=== PATIENT | male | born 1945 | race Caucasian/White ===

== ENCOUNTER 2017-09-06 16:30 | Inpatient (IN) | payer MEDICARE ==
[~2017-09-06] VITALS: Ht 175.3 cm; Wt 74.6 kg
[2017-09-06] MEDS ORDERED: NACL 0.9% 1,000 ML IV ONE ×2 (16:33→17:40)
[2017-09-06 16:35] VITALS: BP 111/51
[2017-09-06] MEDS ORDERED: methylPREDNISolone SS 125 MG in WATER STERILE 2 ML IM ONE (16:35)
[2017-09-06 16:40] VITALS: BP 111/51
--- NOTE | 2017-09-06 16:40 | NUR ---
RECEIVED PT ON CPAP FROM EMS PLACED ON CHANG V60 ST 14\6 RR14 FIO2 40 ALARMS ARE ON AND FUNCTIONAL BS INSP WHEEZING PT IN HF IRRITABLE SIZE LG F\F MASK GEL UNDER MASK I\L HHN GIVEN WITH 3 MG DUONEB
--- NOTE | 2017-09-06 16:40 | NUR ---
72m biba with c/o sob x 30 days, progressively getting worse. Per flight control specialist, on scene pulse ox=60% on ra; Pt able to able in short phrases; RR are tachypenic and labored; Per flight control specialist, pt sts cough and fever as well. Pt is aox4, gcs=15. Pt placed in RM10. RT, lab, er md burch by bedside. Pt placed on bipap per RT. NAD at this time. Will continue to monitor.
[2017-09-06] MEDS ORDERED: ALBUTEROL SULFATE/IPRATROPIU 3 ML SOL IH ONE (16:45)
[2017-09-06] MEDS ORDERED: METO25TA PO (16:48)
[2017-09-06] MEDS ORDERED: THEO400T4 PO (16:48)
[2017-09-06] MEDS ORDERED: ORE25 PO (16:48)
[2017-09-06] MEDS ORDERED: ATOR40TA PO (16:48)
[2017-09-06] MEDS ORDERED: LOSA50TA39 PO (16:48)
[2017-09-06] MEDS ORDERED: PRED20TA5 PO (16:48)
[2017-09-06 16:54] LABS: HEMATOCRIT 49.4 % (36-52); HEMOGLOBIN 15.7 g/dL (12.0-18.0); MEAN CORPUSCULAR HEMOGLOBIN 32 pg (27-31); MEAN CORPUSCULAR HGB CONC 32 g/dL (33-37); MEAN CORPUSCULAR VOLUME 99 fL (80-94); PLATELET COUNT (AUTO) 271 K/uL (140-450); RED BLOOD CELL COUNT(AUTO) 4.97 MIL/uL (4.20-6.10); RED CELL DISTRIBUTION WIDTH 13.4 % (11.6-13.7); WHITE BLOOD COUNT (AUTO) 15.6 K/uL (4.8-10.8)
[2017-09-06 17:12] LABS: PROTHROMBIN TIME 10.8 secs (10.8-13.4)
[2017-09-06 17:16] LABS: LYMPHOCYTES % (MANUAL) 8 % (20-46); MONOCYTES % (MANUAL) 8 % (5-12)
[2017-09-06 17:19] LABS: ALBUMIN 2.8 g/dL (3.4-5.0); ANION GAP 8.7 (8-16); ASPARTATE AMINOTRANSFERASE 35 U/L (15-37); CARBON DIOXIDE 39.2 mmol/L (21-32); CHLORIDE 96 mmol/L (98-107); CREATININE 1.5 mg/dL (0.7-1.3); GLUCOSE 120 mg/dL (74-106); LIPASE 94 U/L (73-393); SODIUM SERUM 141 mmol/L (136-145); TOTAL BILIRUBIN 0.4 mg/dL (0.0-1.0); UREA NITROGEN, BLOOD 25 mg/dL (7-18)
[2017-09-06 17:21] LABS: POTASSIUM 2.9 mmol/L (3.5-5.1)
[2017-09-06] MEDS ORDERED: KCL 20 MEQ/WATER INJ PREMIX 100 ML IV ONE (17:25)
[2017-09-06] MEDS ORDERED: ASPIRIN 325 MG TAB PO ONE (17:40)
[2017-09-06] MEDS ORDERED: LEVOFLOXACIN 750 MG/D5W PREMIX 150 ML IV ONE (17:40)
--- NOTE | 2017-09-06 18:00 | NUR ---
iv fluid infusing well; pt tolerating bipap; pt with no complaints; no resp distress at this time; will continue to monitor.
[2017-09-06] MEDS ORDERED: ACETAMINOPHEN 325 MG TAB PO PRN (18:20)
[2017-09-06] MEDS ORDERED: MORPHINE SULFATE 2 MG/ML SYR IVP PRN (18:20)
[2017-09-06] MEDS ORDERED: HYDROcodone/APAP 7.5/325 MG 1 TAB PO PRN (18:20)
[2017-09-06] MEDS ORDERED: ZOLPIDEM 5 MG TAB PO PRN (18:20)
[2017-09-06] MEDS ORDERED: DOCUSATE SODIUM 100 MG GELCAP PO PRN (18:20)
[2017-09-06] MEDS ORDERED: LORazepam 0.5 MG TAB PO PRN (18:20)
[2017-09-06] MEDS ORDERED: ONDANSETRON 4 MG/2 ML VIAL IM/IVP PRN (18:20)
[2017-09-06] MEDS ORDERED: ACETAMINOPHEN 325 MG TAB PO ONE (18:25)
[2017-09-06] MEDS ORDERED: ALBUTEROL SULFATE/IPRATROPIU 3 ML SOL IH PRN (18:25)
--- NOTE | 2017-09-06 19:00 | NUR ---
Patient will be admitted to care of [facility]. Admited to Tele. Will go to room 120-B. Belongings list completed. Bedside report to Nereyda.
--- NOTE | 2017-09-06 19:00 | NUR ---
endorsed to tessa rn ua has not been collected
--- NOTE | 2017-09-06 19:15 | NUR ---
RECEIVED REPORT AT BEDSIDE FROM DRY PAN FEEDERTRACY. PT A/OX4 ON BIPAP. PT HAS A 20G IV TO LEFT AC AND 20G IV TO RIGHT AC. SKIN INTACT. SAFETY PRECAUTIONS IN PLACE. UPDATED BOARD. VITAL SIGNS WITHIN NORMAL LIMITS. PT IN STABLE CONDITION, NO SIGNS OF DISTRESS NOTED. BED IN LOW POSITION, CALL LIGHT WITHIN REACH. WILL CONTINUE TO MONITOR.
[2017-09-06 19:32] LABS: CHOL/HDL RATIO 2.9 (1-4.5); FREE T4 (FREE THYROXINE) 0.97 ng/dL (0.76-1.46); MAGNESIUM 1.9 mg/dL (1.8-2.4); PHOSPHORUS 3.7 mg/dL (2.5-4.9); THYROID STIMULATING HORMONE 0.57 uIU/mL (0.34-3.74)
[2017-09-06] MEDS ORDERED: POTASSIUM CHLORIDE 10 MEQ TABER PO SCH (20:00)
--- NOTE | 2017-09-06 20:10 | NUR ---
LEATHA FROM LAB CALLED TO GIVE RESULTS OF POSITIVE INFLUENZA A, NEGATIVE INFLUENZA B . SPOKE TO DR. CHANG, DR CHANG WILL PLACE PT ON CONTACT PRECAUTIONS.
--- NOTE | 2017-09-06 20:40 | NUR ---
TOOK PT TO NEW ROOM, PLACED DROPLET PRECAUTIONS SIGN OUTSIDE DOOR, ORIENTED PT TO NEW ROOM. RT HELPED MOVE RESPIRATORY EQUIPMENT TO NEW ROOM.
[2017-09-06 21:00] VITALS: BP 117/71
[2017-09-06] MEDS: NACL 0.9% 1,000 ML IV SCH (21:00)
[2017-09-06] MEDS: LEVOFLOXACIN 750 MG/D5W PREMIX 150 ML IV SCH (21:00)
[2017-09-06] MEDS: methylPREDNISolone SS 125 MG/2 ML VIAL IVP SCH (21:10)
[2017-09-06] MEDS: CLINDAMYCIN 600 MG in DEXTROSE 5% 50 ML IV SCH (21:10)
[2017-09-06] MEDS ORDERED: CLINDAMYCIN 600 MG/4 ML VIAL ONE (21:11)
--- NOTE | 2017-09-06 21:11 | NUR ---
PATIENT ON BIPAP 14/6 RR 14 FIO2 40% AT THIS TIME. PT DOES NOT NOT WANT TO TAKE OFF BIPAP UNIT SINCE HE IS ON CPAP +9 AT NIGHT. UNABLE TO PERFORM INCENTIVE SPIROMETER TONIGHT. MAINTAIN O2SAT GREATER THAN 92%. CONTINUOUS PULSE OX AT BEDSIDE SAO2 94%
[2017-09-07] VITALS: BP 118/65
[2017-09-07 04:00] VITALS: BP 130/57
[2017-09-07] MEDS: CLINDAMYCIN 600 MG in DEXTROSE 5% 50 ML IV SCH ×3 (05:50→20:28)
[2017-09-07] MEDS: methylPREDNISolone SS 125 MG/2 ML VIAL IVP SCH ×2 (05:50→14:24)
[2017-09-07] MEDS ORDERED: CLINDAMYCIN 600 MG/4 ML VIAL ONE (05:57)
[2017-09-07 06:12] LABS: T4 (THYROXINE) 4.4 ug/dL (4.5-12.0)
--- NOTE | 2017-09-07 07:00 | NUR ---
RECIVED PT ON BIPAP WITH SETTINGS CHARTED BREATH SOUNDS PRESENT BILAT DIMINISHED PT AWAKE ALERT AMBU BAG AT BEDSIDE BIPAP PLUGGED INTO RED OUTLET
[2017-09-07] MEDS: ALBUTEROL SULFATE/IPRATROPIU 3 ML SOL IH SCH ×3 (07:14→19:04)
--- NOTE | 2017-09-07 07:36 | NUR ---
ENDORSED PT TO DAY SHIFT NURSE FOR CONTINUITY OF CARE, PT IN STABLE CONDITION.
--- NOTE | 2017-09-07 07:37 | NUR ---
RECEIVED REPORT FROM TOP TAPER MACHINE RN. PATIENT IS AAOX4, RESPIRATORY EFFORT UNLABORED AT THIS TIME. NO SIGNS AND SYMPTOMS OF ACUTE DISTRESS NOTED AT THIS TIME. PATIENT ON DROPLET PRECAUTIONS DUE TO POSITIVE FOR TYPE A INFLUENZA. PATIENT ON BREATHING TREATMENTS. HAS IV TO BILATERAL AC, 20G ON BOTH. SITES ARE CLEAN, DRY, PATENT AND INTACT. DISCUSSED PLAN OF CARE WITH PATIENT AND HE VERBALIZED UNDERSTANDING. BED IN LOWEST POSITION, SIDE RAILS UP X2, CALL LIGHT PLACED WITHIN REACH. WILL CONTINUE TO MONITOR.
[2017-09-07 07:50] LABS: BASOPHILS % (AUTO) 0.4 % (0.0-2.0); EOSINOPHILS % (AUTO) 0.2 % (0.0-4.0); HEMATOCRIT 41.9 % (36-52); HEMOGLOBIN 13.9 g/dL (12.0-18.0); LYMPHOCYTES # (AUTO) 0.6 K/uL (2.0-11.5); LYMPHOCYTES % (AUTO) 4.6 % (20.5-51.1); MEAN CORPUSCULAR HEMOGLOBIN 33 pg (27-31); MEAN CORPUSCULAR HGB CONC 33 g/dL (33-37); MEAN CORPUSCULAR VOLUME 99 fL (80-94); MONOCYTES # (AUTO) 0.6 K/uL (0.8-1.0); NEUTROPHILS # (AUTO) 11.2 K/uL (1.8-7.7); NEUTROPHILS % (AUTO) 89.8 % (42.2-75.2); PLATELET COUNT (AUTO) 241 K/uL (140-450); RED BLOOD CELL COUNT(AUTO) 4.25 MIL/uL (4.20-6.10); RED CELL DISTRIBUTION WIDTH 13.9 % (11.6-13.7); WHITE BLOOD COUNT (AUTO) 12.4 K/uL (4.8-10.8)
[2017-09-07 08:00] VITALS: BP 121/62
[2017-09-07 08:09] LABS: MAGNESIUM 2.1 mg/dL (1.8-2.4); PHOSPHORUS 4.8 mg/dL (2.5-4.9)
[2017-09-07 08:11] LABS: ANION GAP 9.9 (8-16); CARBON DIOXIDE 36.7 mmol/L (21-32); CHLORIDE 102 mmol/L (98-107); CREATININE 1.3 mg/dL (0.7-1.3); GLUCOSE 152 mg/dL (74-106); POTASSIUM 3.6 mmol/L (3.5-5.1); SODIUM SERUM 145 mmol/L (136-145); UREA NITROGEN, BLOOD 31 mg/dL (7-18)
--- NOTE | 2017-09-07 08:31 | NUR ---
REMOVED PT FROM BIPAP AND PLACED ON 5LPM NC SO PT COULD EAT BREAKFEAST PT SPO2 .88 T0 .92 WILL CONTINUE TO MONITOR PT WHILE EATING BREAKFEAST
--- NOTE | 2017-09-07 08:58 | NUR ---
PATIENT HAS BEEN SCREENED AND CATEGORIZED HIGH NUTRITION RISK. PATIENT WILL BE SEEN WITHIN 1-2 DAYS OF ADMISSION. 09/06/17-09/07/[address]
[2017-09-07] MEDS ORDERED: predniSONE 20 MG TAB PO SCH (09:00)
--- NOTE | 2017-09-07 09:44 | NUR ---
PT PLACED BACK ON BIPAP WITH SETTINGS CHARTED WILL CONTINUE TO MONITOR PT
[2017-09-07] MEDS: LACTOBACILLUS RHAMNOSUS GG 1 EACH CAP PO SCH (09:51)
[2017-09-07] MEDS: THEOPHYLLINE 200 MG TABER PO SCH (09:51)
[2017-09-07] MEDS: HYDROCHLOROTHIAZIDE 25 MG TAB PO SCH (09:52)
[2017-09-07] MEDS: LOSARTAN 50 MG TAB PO SCH (09:52)
[2017-09-07] MEDS: METOPROLOL 25 MG TAB PO SCH (09:52)
[2017-09-07] MEDS: ATORVASTATIN 20 MG TAB PO SCH (09:53)
[2017-09-07 12:00] VITALS: BP 91/63
--- NOTE | 2017-09-07 12:05 | NUR ---
PATIENT ON NASAL CANNULA 5L SO HE CAN EAT HIS LUNCH. 02 SAT 87-86%.
--- NOTE | 2017-09-07 13:30 | NUR ---
PATIENT BACK ON BIPAP. TOLERATING WELL.
--- NOTE | 2017-09-07 13:37 | NUR ---
REMOVED PT FROM BIPAP PLACED ON 5LPM NC FOR LUNCH PT AWAKE ALERT WILL CONTINUE TO MONITOR PT
[2017-09-07] MEDS: NACL 0.9% 1,000 ML IV SCH (14:20)
--- NOTE | 2017-09-07 14:29 | NUR ---
CM NOTE INITIAL REVIEW FAXED TO [facility] / FAX# [phone], ATTN: STEPHANIE #[phone]
--- NOTE | 2017-09-07 14:55 | NUR ---
PT ON B PAP DECREASED IPAP TO 15 EPAP TO [address] TURNER Addendum: 09/07/17 at 1547 by Tyler Hansen RT PT ON BIPAP DECREASED IPAP TO 10 EPAP TO [address] TURNER INPUT ERROR ABOVE
[2017-09-07] MEDS ORDERED: INSULIN LISPRO SLIDING SCALE 100 UNITS/ML VIAL SUBQ PRN (15:25)
[2017-09-07] MEDS ORDERED: DEXTROSE 50% 50 ML SYR IVP PRN (15:25)
--- NOTE | 2017-09-07 15:40 | NUR ---
09/06/2017 RD INITIAL ASSESSMENT COMPLETED PLEASE REFER TO NUTRITION ASSESSMENT UNDER CARE ACTIVITY FOR ESTIMATED NUTRITIONAL NEEDS. 1.PT TO CONTINUE TO RECEIVE CARDIAC DIET. 2.PT TO COMSUME >75% ESTIMATED KCAL AND PRO NEEDS/DAY WITH GOOD TOLERANCE WITHIN 3-5 DAYS. 3.RD TO FOLLOW-UP IN 3-5 DAYS PATIENT IS MODERATE RISK. AMAURI FLORES, RD
[2017-09-07 16:00] VITALS: BP 107/60
--- NOTE | 2017-09-07 16:41 | NUR ---
PT ON BIPAP ALL DAY OFF BIPAP ONLY TO EAT NO IS DONE AT THIS TIME
[2017-09-07] MEDS: BLOOD GLUCOSE MONITORING 1 DEV DEV FS SCH ×2 (17:19→21:16)
--- NOTE | 2017-09-07 17:25 | NUR ---
CONTINUED TO MONITOR PT ON VENT WITH SETTINGS CHARTED BREATH SOUNDS BILAT COARSE AMBU BAG AT BEDSIDE
--- NOTE | 2017-09-07 18:20 | NUR ---
PT OFF BIPAP AND ON 5LPM NC SPO2 90 PT AWAKE ALERT EATING DINNER AT BEDSIDE
--- NOTE | 2017-09-07 18:20 | NUR ---
PATIENT OFF OF BIPAP SO HE CAN EAT HIS DINNER. NASAL CANNULA ON 5LPM 02 90%. TOLERATING WELL. WILL CONTINUE TO MONITOR.
[2017-09-07] MEDS: BUDESONIDE 0.25 MG/2 ML NEBU INH SCH ×3 (19:03→19:05)
--- NOTE | 2017-09-07 19:09 | NUR ---
RT IN THE ROOM PLACING PATIENT BACK ON BIPAP.
--- NOTE | 2017-09-07 19:10 | NUR ---
ENDORSED PATIENT TO RAD TECHNOLOGIST RN FOR CONTINUITY OF CARE. PATIENT IN STABLE CONDITION.
--- NOTE | 2017-09-07 19:11 | NUR ---
RECEIVED HANDOFF REPORT FROM AM RN. PATIENT A&OX4. PATIENT HAS BI PAP IN PLACE. IV SITE PATENT AND INTACT. PATIENT DENIES PAIN. NO SIGNS OR SYMPTOMS OF ACUTE DISTRESS NOTED. CALL LIGHT WITHIN REACH. WILL CONTINUE TO MONITOR.
[2017-09-07 20:00] VITALS: BP_SYST 109; BP_SYST 131; BP_DIAS 57
[2017-09-07] MEDS: methylPREDNISolone SS 40 MG/ML VIAL IVP SCH (20:29)
[2017-09-07] MEDS: OSELTAMIVIR PHOSPHATE 75 MG CAP PO SCH (20:29)
[2017-09-08] VITALS (9 sets, daily range): BP systolic 0–132; BP diastolic 0–86
--- NOTE | 2017-09-08 00:28 | NUR ---
PATIENT RESTING IN BED. PATIENT DENIES PAIN. NO SIGNS OR SYMPTOMS OF ACUTE DISTRESS. CALL LIGHT WITHIN REACH. WILL CONTINUE TO MONITOR.
[2017-09-08] MEDS: methylPREDNISolone SS 40 MG/ML VIAL IVP SCH ×3 (05:36→20:19)
[2017-09-08] MEDS: CLINDAMYCIN 600 MG in DEXTROSE 5% 50 ML IV SCH ×3 (05:36→20:35)
[2017-09-08] MEDS: BLOOD GLUCOSE MONITORING 1 DEV DEV FS SCH ×4 (06:37→20:19)
[2017-09-08] MEDS: BUDESONIDE 0.25 MG/2 ML NEBU INH SCH ×2 (07:00→19:19)
[2017-09-08] MEDS: ALBUTEROL SULFATE/IPRATROPIU 3 ML SOL IH SCH ×3 (07:00→19:19)
--- NOTE | 2017-09-08 07:27 | NUR ---
ENDORSED PLAN OF CARE TO AM RN. PATIENT IN STABLE CONDITION.
--- NOTE | 2017-09-08 07:28 | NUR ---
RECEIVED REPORT FROM TANK INSPECTOR NURSE, PT IS RESTING IN BED, PT IS A/OX4, USES BEDSIDE COMMODE, IV IS ON THE LEFT WRIST, PATENT, INTACT, FLUSHING WELL, PT IS ON BI PAP MACHINE AT THIS TIME, RT IS AT BEDSIDE NO S/S OF RESPIRATORY DISTRESS OR DISCOMFORT NOTED, DISCUSSED PLAN OF CARE WITH PT, PT VERBALIZED UNDERSTANDING, SAFETY/FALL PRECAUTIONS ARE IN PLACE, CALL LIGHT IS WITHIN REACH, WILL CONTINUE TO MONITOR.
[2017-09-08 07:34] LABS: BASOPHILS % (AUTO) 0.1 % (0.0-2.0); EOSINOPHILS # (AUTO) 0.1 K/uL (0-0.4); EOSINOPHILS % (AUTO) 0.3 % (0.0-4.0); HEMOGLOBIN 13.4 g/dL (12.0-18.0); LYMPHOCYTES # (AUTO) 0.7 K/uL (2.0-11.5); LYMPHOCYTES % (AUTO) 3.8 % (20.5-51.1); MEAN CORPUSCULAR HEMOGLOBIN 33 pg (27-31); MEAN CORPUSCULAR HGB CONC 33 g/dL (33-37); MEAN CORPUSCULAR VOLUME 99 fL (80-94); MONOCYTES # (AUTO) 0.7 K/uL (0.8-1.0); MONOCYTES % (AUTO) 3.7 % (1.7-9.3); NEUTROPHILS # (AUTO) 16.6 K/uL (1.8-7.7); NEUTROPHILS % (AUTO) 92.1 % (42.2-75.2); PLATELET COUNT (AUTO) 228 K/uL (140-450); RED BLOOD CELL COUNT(AUTO) 4.13 MIL/uL (4.20-6.10); RED CELL DISTRIBUTION WIDTH 13.7 % (11.6-13.7)
[2017-09-08 08:10] LABS: ANION GAP 2.9 (8-16); CARBON DIOXIDE 37.3 mmol/L (21-32); CHLORIDE 99 mmol/L (98-107); CREATININE 1.5 mg/dL (0.7-1.3); GLUCOSE 201 mg/dL (74-106); POTASSIUM 3.2 mmol/L (3.5-5.1); SODIUM SERUM 136 mmol/L (136-145); UREA NITROGEN, BLOOD 41 mg/dL (7-18)
--- NOTE | 2017-09-08 08:21 | NUR ---
PT TAKEN OFF OF BIPAP TO EAT AND PLACED ON 5L NC. PT IS NOT SOB AND NOT IN RESPIRATORY DISTRESS AT THIS TIME. NURSE ION ROBLERO.
[2017-09-08 08:42] LABS: WHITE BLOOD COUNT (AUTO) 18.1 K/uL (4.8-10.8)
[2017-09-08] MEDS ORDERED: POTASSIUM CHLORIDE 10 MEQ TABER PO SCH (09:07)
[2017-09-08] MEDS: OSELTAMIVIR PHOSPHATE 75 MG CAP PO SCH ×2 (09:18→20:19)
[2017-09-08] MEDS: LACTOBACILLUS RHAMNOSUS GG 1 EACH CAP PO SCH (09:19)
[2017-09-08] MEDS: ATORVASTATIN 20 MG TAB PO SCH (09:19)
[2017-09-08] MEDS: HYDROCHLOROTHIAZIDE 25 MG TAB PO SCH (09:19)
[2017-09-08] MEDS: LOSARTAN 50 MG TAB PO SCH (09:19)
[2017-09-08] MEDS: METOPROLOL 25 MG TAB PO SCH (09:20)
[2017-09-08] MEDS: THEOPHYLLINE 200 MG TABER PO SCH (09:20)
[2017-09-08] MEDS: AMANTADINE 100 MG CAP PO SCH (09:20)
--- NOTE | 2017-09-08 09:44 | NUR ---
CHECKED ON PT PLACED PT ON 5LPM OXYMIXER PT AWAKE ALERT STATES HE WANTS TO STAY OFF BIPAP AWHILE LONGER PT SPO2 .89 TO.92 MILD LABORED BREATHING WILL CONTINUE TO MONITOR PT
[2017-09-08] MEDS: NACL 0.9% 1,000 ML IV SCH (11:07)
--- NOTE | 2017-09-08 12:16 | NUR ---
PT BLOOD SUGAR 196, PT REFUSED INSULIN AT THIS TIME.
--- NOTE | 2017-09-08 14:10 | NUR ---
PT REQUESTED TO GO BACK ON BIPAP PTPLACED ON BIPAP WITH SETTINGS CHARTED PT QUIET AT THIS TIME WILL CONTINUE TO MONITOR
--- NOTE | 2017-09-08 14:28 | NUR ---
1240 MET WITH PT AND AT BEDSIDE. PT STATED THAT HE HAS AN O2 CONCENTRATOR, PORTABLE TANKS AND A C-PAP AND NEBULIZER MACHINES. PT SAID DUE TO A MERGER OF COMPANIES THE O2 COMPANY HE HAD WAS TAKEN OVER BY ANOTHER COMPANY AND THAT HE IS NOT HAPPY WITH THE SERVICE. DISCUSSED WITH HIM THAT THE COMPANY TO BE USED IS USUALLY DETERMINED BY THE INSURANCE COMPANY. PT DID NOT KNOW THE NAME OF THE O2 COMPANY AT THIS TIME.
--- NOTE | 2017-09-08 15:00 | NUR ---
PT RESTING IN BED, WATCHING TV, CALL LIGHT WITHIN REACH.
--- NOTE | 2017-09-08 15:15 | NUR ---
PT REMOVED PER HIS REQUEST AND PLACED ON 5LPM OXYMISER MILD RESP DISTRESS SPO2 .96 PT AWAKE ALERT AT BEDSIDE RN AWARE
--- NOTE | 2017-09-08 15:56 | NUR ---
FAXED CONCURRENT REVIEW TO [facility] [phone] PHONE STEPHANIE [phone]
[2017-09-08] MEDS ORDERED: ALBU-118 IH (16:29)
--- NOTE | 2017-09-08 17:37 | NUR ---
PT REFUSED INSULIN AT THIS TIME.
--- NOTE | 2017-09-08 19:10 | NUR ---
ENDORSED PT TO ACID CONDITIONER NURSE FOR CONTINUITY OF CARE, PT STABLE AT THIS TIME.
--- NOTE | 2017-09-08 19:19 | NUR ---
AWAKE AND ALERT RESPONSIVE TO ARTS ADMINISTRATOR VERBAL COMMANDS HFW POSITION SKIN TONE FAIR SATURATION 89% ON SUPPLEMENTAL OXYGEN AT 5 LPM VIA OXYMIZER HR 91 RR 28 PATIENT REFUSES BIPAP TO MASK WITHOUT PROTECTA GEL (NOT AVAILABLE) HHN THERAPY VIA MASK WITH COSTA GUERRERO PATIENT REFUSES AFTER 6 MIN DUE TO INCREASED COUGHING ARTS ADMINISTRATOR TO PLACE PATIENT BACK ON BIPAP TO MASK AT LATER TIME Addendum: 09/08/17 at 2118 by Jc Clarke RT BREATH SOUNDS INSP/EXP RALES BILATERAL WITH GOOD CHEST RISE Addendum: 09/08/17 at 2121 by Jc Clarke RT PRINCE CASTRO CONTINUOS PULSE OXIMETRY AT BEDSIDE ON AND FUNCTIONING WELL LOW SATURATION ALARM SET AT 88%
--- NOTE | 2017-09-08 19:20 | NUR ---
RECEIVED REPORT FROM DAY SHIFT RN AT BEDSIDE, PATIENT RESTING IN BED, NO S/S OF DISTRESS, RESPIRATION EVEN AND UNLABORED. PATIENT DENIES PAIN AT THIS TIME, PLAN OF CARE DISCUSSED, PATIENT WANTS ME TO GIVE HIM 2100 MEDICATION AT THIS TIME, INFORMED THE PATIENT IT'S TOO EARLY TO HAVE MEDICATION AT THIS TIME, PATIENT IS A LITTLE BIT UPSET. PATIENT ASKED FOR BIPAP, RT IS INFORMED AND RT SAID HE WOULD COME TO HELP THE PATIENT. CALL LIGHT WITHIN REACH, SAFETY MEASURE ENSURED, WILL CONTINUE TO MONITOR.
[2017-09-08] MEDS: LEVOFLOXACIN 750 MG/D5W PREMIX 150 ML IV SCH (20:18)
--- NOTE | 2017-09-08 20:35 | NUR ---
PATIENT REFUSED INSULIN AT FIRST, STATED," I DIDN'T EAT ANY CANDY OR SUGAR, IT'S RIDICULOUS TO HAVE INSULIN." EDUCATED PATIENT THAT THE POTATO HE ATE FOR DINNER CONTAINING SUGAR WELL, THEREFORE HIS BLOOD SUGAR LEVEL 223. PATIENT STILL REFUSED INSULIN. MADE DR. CHANG AWARE, AFTER DO. CHANG TALKED TO THE PATIENT, PATIENT AGREE TO RECEIVE INSULIN. INSULIN GIVEN ORDERED.
--- NOTE | 2017-09-08 22:20 | NUR ---
PATIENT IS SLEEPING, NO S/S OF DISTRESS NOTED, RESPIRATION EVEN AND UNLABORED, ON BIPAP. CALL LIGHT WITHIN REACH, SAFETY MEASURE ENSURED, WILL CONTINUE TO MONITOR.
--- NOTE | 2017-09-08 23:35 | NUR ---
ASLEEP RESTING COMFORTABLY TOLERATING BIPAP TO MASK WELL WITHOUT ADVERSE REACTIONS NOTED
[2017-09-09] VITALS: BP 143/63
--- NOTE | 2017-09-09 00:35 | NUR ---
IV CATHETER OUT, TIP INTACT, NO ACTIVE BLEEDING NOTED AT THE IV SITE, STARTED NEW IV 22G ON RT HAND, PATIENT TOLERATED WELL. WILL CONTINUE TO MONITOR.
[2017-09-09] MEDS: NACL 0.9% 1,000 ML IV SCH (01:54)
[2017-09-09 02:30] VITALS: BP 0/0
--- NOTE | 2017-09-09 02:30 | NUR ---
NO EVIDENCE OF PULMONARY DISTRESS NOTED GOOD CHEST RISE
--- NOTE | 2017-09-09 02:50 | NUR ---
PATIENT IS SLEEPING, NO S/S OF DISTRESS NOTED, RESPIRATION EVEN AND UNLABORED, ON BIPAP. CALL LIGHT WITHIN REACH, SAFETY MEASURE ENSURED, WILL CONTINUE TO MONITOR.
[2017-09-09 03:54] VITALS: BP 112/63
--- NOTE | 2017-09-09 04:09 | NUR ---
PATIENT WAS SLEEPING, EASY TO AROUSE, NO S/S OF DISTRESS NOTED, RESPIRATION EVEN AND UNLABORED, VITAL SIGNS STABLE. CALL LIGHT WITHIN REACH, SAFETY MEASURE ENSURED, WILL CONTINUE TO MONITOR.
[2017-09-09] MEDS: methylPREDNISolone SS 40 MG/ML VIAL IVP SCH ×2 (05:17→13:00)
[2017-09-09] MEDS: CLINDAMYCIN 600 MG in DEXTROSE 5% 50 ML IV SCH ×2 (05:18→13:00)
[2017-09-09 05:23] VITALS: BP 0/0
--- NOTE | 2017-09-09 05:23 | NUR ---
AWAKE AND ALERT BREATH SOUNDS RALES BILATERAL WITH GOOD CHEST RISE PATIENT REQUEST TO OFF BIPAP TO MASK AT THIS TIME PLACED PATIENT ON SUPPLEMENTAL OXYGEN AT 5 LPM VIA NC Addendum: 09/09/17 at 0536 by Jc Clarke RT OUMAR/SAM NOTIFIED
--- NOTE | 2017-09-09 05:28 | NUR ---
DUE MEDICATION GIVEN, PATIENT TOLERATED WELL, NO S/S OF DISTRESS NOTED. RT IS IN THE ROOM AT THIS TIME.
[2017-09-09] MEDS: ALBUTEROL SULFATE/IPRATROPIU 3 ML SOL IH SCH ×2 (06:00→12:00)
[2017-09-09] MEDS: BLOOD GLUCOSE MONITORING 1 DEV DEV FS SCH ×2 (06:33→11:30)
--- NOTE | 2017-09-09 06:43 | NUR ---
PATIENT FORGET TO VOID IN THE CUP FOR URINE TEST, DR. PEDROZA IS AWARE THAT NO URINE IS COLLECTED, SHE SAID," IT'S OKAY."
[2017-09-09] MEDS: BUDESONIDE 0.25 MG/2 ML NEBU INH SCH (06:57)
[2017-09-09 07:47] LABS: HEMATOCRIT 41.9 % (36-52); MEAN CORPUSCULAR HEMOGLOBIN 33 pg (27-31); MEAN CORPUSCULAR HGB CONC 33 g/dL (33-37); MEAN CORPUSCULAR VOLUME 97 fL (80-94); PLATELET COUNT (AUTO) 199 K/uL (140-450); RED CELL DISTRIBUTION WIDTH 13.3 % (11.6-13.7); WHITE BLOOD COUNT (AUTO) 17.4 K/uL (4.8-10.8)
[2017-09-09 07:54] LABS: ANION GAP 7.5 (8-16); CARBON DIOXIDE 35.1 mmol/L (21-32); CHLORIDE 104 mmol/L (98-107); CREATININE 1.2 mg/dL (0.7-1.3); GLUCOSE 118 mg/dL (74-106); POTASSIUM 3.6 mmol/L (3.5-5.1); SODIUM SERUM 143 mmol/L (136-145); UREA NITROGEN, BLOOD 39 mg/dL (7-18)
[2017-09-09 08:00] VITALS: BP 124/69
[2017-09-09 08:35] LABS: LYMPHOCYTES % (MANUAL) 3 % (20-46); MONOCYTES % (MANUAL) 5 % (5-12)
--- NOTE | 2017-09-09 08:40 | NUR ---
RECEIVED PATIENT REPORT AT BEDSIDE PATIENT IS AAOX4 AND SHOWS NO S/S OF ACUTE DISTRESS ON 02 OXIMIZER 5L, DENIES PAIN, ON TELE, SKIN INTACT, IV NOTED ON THE RH 22 G WITH IVF'S INFUSING WELL. PATIENT WAS EXPLAINED POC TODAY AND VERBALIZED UNDERSTANDING. BED IN LOW POSITION WITH CALL LIGHT WITHIN REACH.
[2017-09-09] MEDS: LOSARTAN 50 MG TAB PO SCH (09:36)
[2017-09-09] MEDS: ATORVASTATIN 20 MG TAB PO SCH (09:37)
[2017-09-09] MEDS: LACTOBACILLUS RHAMNOSUS GG 1 EACH CAP PO SCH (09:37)
[2017-09-09] MEDS: METOPROLOL 25 MG TAB PO SCH (09:38)
[2017-09-09] MEDS: AMANTADINE 100 MG CAP PO SCH (09:39)
[2017-09-09] MEDS: HYDROCHLOROTHIAZIDE 25 MG TAB PO SCH (09:39)
[2017-09-09] MEDS: OSELTAMIVIR PHOSPHATE 75 MG CAP PO SCH (09:40)
[2017-09-09] MEDS: THEOPHYLLINE 200 MG TABER PO SCH (09:40)
--- NOTE | 2017-09-09 09:40 | NUR ---
MEDICATIONS ADMINISTERED AND SWALLOWED WITHOUT DIFFICULTY.
[2017-09-09] MEDS ORDERED: LACT10CA1 PO (11:06)
[2017-09-09] MEDS ORDERED: LEVO750T2 PO (11:06)
[2017-09-09 12:00] VITALS: BP_SYST 111; BP_SYST 149; BP_DIAS 55; BP_DIAS 78
--- NOTE | 2017-09-09 12:15 | NUR ---
PATIENT IN ROOM WITH . PATIENT SHOWS NO S/S OF ACUTE DISTRESS ON OXYMIZER @ 5 L. PATIENT NOTIFIED OF DISCHARGE ORDER.
--- NOTE | 2017-09-09 13:09 | NUR ---
PATIENT REFUSED MEDICATIONS, STATES," I WANT TO LEAVE NOW." WILL PROCESS HIS DISCHARGE PAPERWORK.
--- NOTE | 2017-09-09 13:30 | NUR ---
PATIENT HAS BEEN DISCHARGED. ALL DISCHARGE INSTRUCTIONS GIVEN, ALL PAPERWORK SIGNED. ALL QUESTIONS ANSWERED, PATIENT VERBALIZED UNDERSTANDING OF CONTINUITY OF CARE AT HOME. ALL BELONGINGS WITH PATIENT. IV DISCONTINUED WITH CANNULA INTACT. WRISTBANDS REMOVED. PATIENT LEFT IN WHEELCHAIR AND OXYGEN FROM HOME WITH PRESENT AT SIDE. PATIENT LEFT IN STABLE CONDITION.
[2017-09-09 14:13] LABS: MAGNESIUM 2.1 mg/dL (1.8-2.4)
== END 2017-09-09 13:30 | disposition home or self-care (01) | DRG 682 ==
LOC: MED 16:30 → MTU 18:24
PROVIDERS: ADMIT Family Medicine Sports Medicine; ATTEND Family Medicine Sports Medicine
PROC: 5A09457 Assistance with Respiratory Ventilation, 24-96 Consecutive Hours, Continuous Positive Airway Pressure (ICD-10-PCS; principal; 2017-09-06)
PROC: 5A09357 Assistance with Respiratory Ventilation, Less than 24 Consecutive Hours, Continuous Positive Airway Pressure (ICD-10-PCS; 2017-09-08)
DX: N17.0 Acute kidney failure with tubular necrosis (principal); J96.21 Acute and chronic respiratory failure with hypoxia; E43 Unspecified severe protein-calorie malnutrition; J96.22 Acute and chronic respiratory failure with hypercapnia; J44.1 Chronic obstructive pulmonary disease with (acute) exacerbation; I13.0 Hypertensive heart and chronic kidney disease with heart failure and stage 1 through stage 4 chronic kidney disease, or unspecified chronic kidney disease; J10.1 Influenza due to other identified influenza virus with other respiratory manifestations; Z99.81 Dependence on supplemental oxygen; E87.6 Hypokalemia; E66.9 Obesity, unspecified; I50.9 Heart failure, unspecified; F10.21 Alcohol dependence, in remission; F17.210 Nicotine dependence, cigarettes, uncomplicated; E11.65 Type 2 diabetes mellitus with hyperglycemia; N18.9 Chronic kidney disease, unspecified; Z88.1 Allergy status to other antibiotic agents; Z88.2 Allergy status to sulfonamides; Z90.49 Acquired absence of other specified parts of digestive tract; Z72.89 Other problems related to lifestyle; Z68.24 Body mass index [BMI] 24.0-24.9, adult; Z79.899 Other long term (current) drug therapy
CPT/HCPCS: 36415; 36600; 71045; 80048; 80053; 80198; 82150; 82803; 82948; 83036; 83605; 83690; 83735; 83880; 84100; 84436; 84439; 84443; 84479; 84484; 85025; 85610; 87040; 87081; 87205; 87804; 93005; 93925; 93970; 94640; 94660; 96365; 96368; 96375; 99291; J1815; J1956; J2920; J2930; J3480; J3490; J7030; J7060; J7512; J7620; J7626; Q0092